=== PATIENT | male | born 1960 | race Hispanic/Latino ===

== ENCOUNTER 2016-08-07 08:48 | Day surgery (SDC) | payer BC ==
[2016-08-07 09:43] VITALS: BMI 39.8
[2016-08-07 10:05] LABS: ADD MANUAL DIFF? NO
[2016-08-07 10:11] LABS: BASO # 0.03 K/mm3 (0.0-2.0); BASO % 0.3 % (0.0-3.0); EOS # 0.1 (0.0-0.7); EOS % 1.1 % (1.5-5.0); GRAN % 70.5 % (50.0-68.0); HEMATOCRIT 45.1 % (42.0-52.0); LYMPH # 1.9 (1.2-3.4); LYMPH % 21.2 % (22.0-35.0); MEAN CELL VOLUME 92.4 fL (80.0-105.0); MEAN CORPUSCULAR HEMOGLOBIN 31.8 pg (25.0-35.0); MEAN CORPUSCULAR HGB CONC 34.4 g/dl (31.0-37.0); MEAN PLATELET VOLUME 9.5 fl (7.0-11.0); MONO # 0.6 (0.1-0.6); MONO % 6.9 % (1.0-6.0); PLATELET COUNT 190 10^3/uL (120.0-450.0); RED CELL DISTRIBUTION WIDTH 13.1 % (11.5-14.5)
[2016-08-07 10:19] LABS: BLOOD UREA NITROGEN 19 mg/dL (7-21); CALCIUM 9.4 mg/dL (8.4-10.5); CARBON DIOXIDE 31 mmol/L (21-33); CHLORIDE 101 mmol/L (98-107); GFR AFRICAN-AMERICAN > 60; GLUCOSE,RANDOM 97 mg/dL (70-110); POTASSIUM 3.9 mmol/L (3.6-5.0); SODIUM 139 mmol/L (132-148)
[2016-08-07 10:20] LABS: INR 1.01 (0.93-1.08); PARTIAL THROMBOPLASTIN TIME 28.8 Seconds (23.7-30.8)
--- NOTE | 2016-08-07 10:27 | CP.SDSHP ---
Same Day Surgery H & P - History Proposed Procedure: ct guided Bx of thyroid. Pre-Op Diagnosis: multiple thyroid nodules. - Previous Medical/Surgical History Cardiac: Hypertension Endocrine/Metabolic: Thyroid Disease, Obesity Pain: 0. No Pain Previous Surgical History: colonoscopy. - Allergies Allergies: Allergies No Known Allergies Allergy (Verified 09/18/12 08:46) - Physical Exam General Appearance: WNL. Vital Signs: Vital Signs 08/07/16 09:55 Temperature 97.8 F Pulse Rate 64 Respiratory 18 Rate Blood Pressure 125/66 O2 Sat by Pulse 97 Oximetry Mental Status: Alert & Oriented x3 Neuro: WNL Heart: WNL Lungs: WNL GI: WNL - Impression Impression: MULTIPLE THYROID NODULES. - Date & Time Date: 08/07/16 Time: 10:27 Short Stay Discharge - Short Stay Discharge Admitting Diagnosis/Reason for Visit: THYROID NODULE E04.9 Disposition: HOME/ ROUTINE Referrals: Newton Sifuentes MD [Primary Care Provider] -
[2016-08-07 10:48] VITALS: RESP 18
[2016-08-07] MEDS ORDERED: Midazolam 2 MG/2 ML VIAL ONE (10:53)
[2016-08-07] MEDS ORDERED: Oxycodone/Acetaminophen 5/325 mg Tab PO PRN (11:51)
[2016-08-07] MEDS ORDERED: Sodium Chloride 0.45% 1,000 ML IV SCH (12:00)
[2016-08-07 12:43] VITALS: TEMP 97.9
[2016-08-07 13:12] VITALS: BP 102/65; PULSE 68; O2SAT 98
--- NOTE | 2016-08-07 18:29 | US ---
PROCEDURE: Ultrasound-guided right thyroid fine needle aspiration biopsy. CLINICAL HISTORY: Multiple thyroid nodules. Dominant right nodule. Evaluate for malignancy. PHYSICIAN(S): Mingo Conrad M.D. TECHNIQUE: The relative risks and indications for the procedure were explained to the patient and consent obtained. The patient was placed supine on the stretcher with the neck extended and preliminary sonography of the thyroid performed. This reveal 2 cm dominant heterogeneous nodule in the right thyroid.. The neck was prepped and draped in the usual sterile fashion. Conscious sedation and monitoring were provided throughout the procedure by a nurse. 1% Xylocaine was used to anesthetize the skin and soft tissues at the access site. Three passes with a 22-gauge needle were performed under ultrasound guidance for fine needle aspiration of the 2 cm heterogeneous nodule in the right thyroid. The slides were reviewed by pathology and deemed adequate. The patient tolerated the procedure well. IMPRESSION: 1. Ultrasound guided fine needle aspiration of a 2 cm heterogeneousnodule in the right thyroid.
== END 2016-08-07 13:30 | disposition home or self-care (01) ==
LOC: SDS 08:48 → PAT 08:48 → EDSTATUS 09:13 → SDS 13:30
PROVIDERS: ATTEND Radiology Vascular & Interventional Radiology
DX: E04.2 Nontoxic multinodular goiter (principal); E06.3 Autoimmune thyroiditis; I10 Essential (primary) hypertension; E66.9 Obesity, unspecified
CPT/HCPCS: 10022; 36415; 80048; 85025; 85610; 85730; 88173; 88305; J2250; J2405; J3010; J7030